=== PATIENT | female | born 1970 | race African-American/Black ===

== ENCOUNTER → 2017-07-16 | Day surgery (SDC) | payer MEDICAID ==
[~2017-07-16] VITALS: Ht 162.6 cm; Wt 99.8 kg
[~2017-07-16] MED LIST: CEFAZOLIN SODIUM 1000MG/VIAL ONE; DEXAMETHASONE 4MG/ML 1ML VIAL ONE; FENTANYL CITRATE/PF 50MCG/ML 2ML VIAL ONE; IBUPROFEN 800MG TABLET PO PRN; LACTATED RINGERS 1,000 ML IV SCH; LIDOCAINE HCL 1% 20ML VIAL (Pyxis) INJ ONE; MIDAZOLAM HCL 2 MG/2 ML VIAL ONE; ONDANSETRON HCL 4MG/2ML VIAL IV PRN; ONDANSETRON HCL 4MG/2ML VIAL ONE; PROPOFOL 200MG/20ML VIAL IV ONE; SODIUM CHLORIDE 0.9% 1,000 ML IV SCH
[2017-07-16 06:48] LABS: BASOPHILS % 1.3 % (0.0-2.0); EOSINOPHILS % 1.6 % (0.0-5.0); HEMATOCRIT. 36.4 % (36.0-48.0); HEMOGLOBIN. 12.1 g/dL (12.0-16.0); MEAN CORPUSCULAR HEMOGLOBIN 28.6 pg (28.0-32.0); MEAN CORPUSCULAR VOLUME 85.9 fL (81.0-99.0); MEAN PLATELET VOLUME 9.3 fl (7.4-10.4); MONOCYTES % 9.5 % (2.0-8.0); NEUTROPHILS % 48.6 % (40.0-76.0); PLATELET 221 x1000/uL (130-400); RED BLOOD CELL COUNT 4.23 mill/uL (4.2-5.4); RED CELL DISTRIBUTION WIDTH 15.1 % (11.6-14.6)
[2017-07-16 07:00] LABS: CARBON DIOXIDE 27 mEq/L (21-32); CHLORIDE 108 mEq/L (98-107); INR 0.9; PARTIAL THROMBOPLASTIN TIME 27.8 sec (23.4-31.0); PROTHROMBIN TIME 9.8 sec (9.4-11.6)
[2017-07-16 07:02] LABS: CLARITY URINE CLEAR (CLEAR); COLOR URINE YELLOW (YELLOW); GLUCOSE URINE NEGATIVE (NEGATIVE); KETONES URINE NEGATIVE (NEGATIVE); LEUKOCYTE ESTERASE URINE NEGATIVE (NEGATIVE); NITRITE URINE NEGATIVE (NEGATIVE); OCCULT BLOOD URINE 2+ (NEGATIVE); PH URINE 5.5 (4.5-8.0); PROTEIN URINE NEGATIVE (NEGATIVE); SPECIFIC GRAVITY URINE 1.029 (1.005-1.030); UCG SCREEN NEGATIVE
[2017-07-16] MEDS: HYDROMORPHONE HCL/PF 2MG/ML CPJ IV PRN ×2 (09:36→09:42)
[2017-07-16 09:42] VITALS: BP 119/46
== END | disposition home or self-care (01) ==
LOC: OR 05:52
PROVIDERS: ATTEND Obstetrics & Gynecology
DX: N75.1 Abscess of Bartholin's gland (principal); E66.9 Obesity, unspecified; Z98.890 Other specified postprocedural states; Z80.9 Family history of malignant neoplasm, unspecified
CPT/HCPCS: 36415; 56440; 80048; 81001; 81025; 85025; 85610; 85730; 87070; 87075; 87205; 88304; 93005; J0690; J1100; J1170; J2250; J2405; J3010; J3490; J7120; J2704

== ENCOUNTER 2021-01-07 11:53 | Emergency (ER) | payer MEDICAID ==
[~2021-01-07] VITALS: Ht 162.6 cm; Wt 109.0 kg
[2021-01-07] MEDS ORDERED: IBUPROFEN 600MG TABLET PO ONE (12:15)
[2021-01-07] MEDS ORDERED: IBUP-2029 MT (13:17)
[2021-01-07 13:25] VITALS: BP 164/80
== END 2021-01-07 13:26 | disposition home or self-care (01) ==
LOC: ER 11:53
DX: S92.512A Displaced fracture of proximal phalanx of left lesser toe(s), initial encounter for closed fracture (principal); W01.0XXA Fall on same level from slipping, tripping and stumbling without subsequent striking against object, initial encounter; Y93.89 Activity, other specified; Y92.9 Unspecified place or not applicable
CPT/HCPCS: 73610; 73630; 81025; 99284; Z7610

== ENCOUNTER 2024-09-16 03:33 | Emergency (ER) | payer MEDICAID ==
[~2024-09-16] VITALS: Ht 162.6 cm; Wt 68.0 kg
[~2024-09-16 03:33] MED LIST changes: -CEFAZOLIN SODIUM 1000MG/VIAL ONE; -DEXAMETHASONE 4MG/ML 1ML VIAL ONE; -FENTANYL CITRATE/PF 50MCG/ML 2ML VIAL ONE; +IBUP-2029 MT; -IBUPROFEN 800MG TABLET PO PRN; -LACTATED RINGERS 1,000 ML IV SCH; -LIDOCAINE HCL 1% 20ML VIAL (Pyxis) INJ ONE; -MIDAZOLAM HCL 2 MG/2 ML VIAL ONE; -ONDANSETRON HCL 4MG/2ML VIAL IV PRN; -ONDANSETRON HCL 4MG/2ML VIAL ONE; -PROPOFOL 200MG/20ML VIAL IV ONE; -SODIUM CHLORIDE 0.9% 1,000 ML IV SCH
[2024-09-16 03:49] VITALS: O2SAT 98
[2024-09-16 03:57] VITALS: TEMP 36.66960
[2024-09-16] MEDS ORDERED: OFLO5DRO4 EACH EAR (04:17)
[2024-09-16] MEDS ORDERED: AMOX500T2 MT (04:17)
[2024-09-16 05:04] VITALS: BP 104/70; PULSE 75; RESP 16; O2SAT 99
== END 2024-09-16 05:05 | disposition home or self-care (01) ==
LOC: ER 03:44
DX: H66.90 Otitis media, unspecified, unspecified ear (principal); E11.9 Type 2 diabetes mellitus without complications
CPT/HCPCS: 99283

== ENCOUNTER 2025-04-04 08:34 | Emergency (ER) | payer MEDICAID, OTHER ==
[~2025-04-04] VITALS: Ht 162.6 cm; Wt 69.0 kg
[~2025-04-04 08:34] MED LIST changes: +AMOX500T2 MT; +OFLO5DRO4 EACH EAR
[2025-04-04 08:56] VITALS: O2SAT 100
[2025-04-04 10:12] VITALS: TEMP 37.1; O2SAT 100
[2025-04-04 10:14] VITALS: BP 121/75; PULSE 61; RESP 18
[2025-04-04] MEDS: CYCLOBENZAPRINE 10MG TABLET PO ONE (10:14)
[2025-04-04] MEDS: KETOROLAC 15MG/ML VIAL IV ONE (10:14)
[2025-04-04] MEDS: LIDOCAINE 5% PATCH TOP SCH (10:14)
[2025-04-04] MEDS ORDERED: LIDO700A30 TP (10:15)
[2025-04-04] MEDS ORDERED: IBUP-2029 MT (10:15)
[2025-04-04] MEDS: DIPHENHYDRAMINE 25MG CAPSULE PO ONE (10:43)
== END 2025-04-04 10:44 | disposition home or self-care (01) ==
LOC: ER 08:34
DX: M54.2 Cervicalgia (principal); M79.18 Myalgia, other site; E11.9 Type 2 diabetes mellitus without complications; E78.00 Pure hypercholesterolemia, unspecified; V49.9XXA Car occupant (driver) (passenger) injured in unspecified traffic accident, initial encounter; Y93.89 Activity, other specified; Y92.410 Unspecified street and highway as the place of occurrence of the external cause; Y99.8 Other external cause status
CPT/HCPCS: 99284; 96374; 71045; 72040; J1885; Q0163